=== PATIENT | male | born 1985 | race Caucasian/White ===

== ENCOUNTER 2020-06-25 20:59 | Emergency (ER) | payer BC ==
[2020-06-25 21:07] VITALS: BP 146/93; PULSE 85; TEMP 98.6; BMI 23.6
== END 2020-06-25 21:54 | disposition home or self-care (01) ==
LOC: JER 20:59
DX: K21.9 Gastro-esophageal reflux disease without esophagitis (principal); K58.9 Irritable bowel syndrome, unspecified
CPT/HCPCS: 99281-25

== ENCOUNTER 2021-02-23 19:54 | Emergency (ER) | payer BC ==
[2021-02-23 20:01] VITALS: BP 151/85; PULSE 88; TEMP 98; BMI 22.9
== END 2021-02-23 21:50 | disposition home or self-care (01) ==
LOC: JERFT 19:54
DX: K02.9 Dental caries, unspecified (principal); K21.9 Gastro-esophageal reflux disease without esophagitis
CPT/HCPCS: 82962; 99283-25

== ENCOUNTER 2023-08-03 22:03 | Emergency (ER) | payer BC ==
[2023-08-03 22:10] VITALS: BP 139/96; PULSE 90; RESP 18; TEMP 98.4; BMI 21.5
== END 2023-08-04 00:53 | disposition left against medical advice (07) ==
LOC: JER 22:03
DX: Z53.21 Procedure and treatment not carried out due to patient leaving prior to being seen by health care provider (principal)
CPT/HCPCS: 99281-25

== ENCOUNTER 2023-10-02 11:31 | Emergency (ER) | payer BC ==
[2023-10-02 11:44] VITALS: TEMP 98.4; BMI 21.5
[2023-10-02] MEDS ORDERED: ACETAMINOPHEN INJECTION 100 ML ONE (13:09)
[2023-10-02] MEDS ORDERED: MAG HYDROX/AL HYDROX/SIMETH 30 ML UNIT-DOSE CUP ONE (13:09)
[2023-10-02] MEDS ORDERED: FAMOTIDINE 20 MG/50 ML IVPB 20 MG/50 ML MG IVPB ONE (13:09)
[2023-10-02] MEDS ORDERED: LIDOCAINE 4% PATCH TP ONE (13:09)
[2023-10-02 13:17] LABS: BASO % 0.1 % (0-2.0); EOS % 0.3 % (0-4.5); HEMATOCRIT 42.9 % (35.4-49); HEMOGLOBIN 14.7 GM/dL (11.7-16.9); LYMPH % 18.6 % (8-40); MCH 30.3 pg (25.7-33.7); MCHC 34.3 g/dl (32.0-35.9); MEAN CELL VOLUME 88.3 fl (80-96); MEAN PLT VOLUME 7.1 fl (7.5-11.1); MONO % 5.3 % (3.8-10.2); NEUT % 75.7 % (42.8-82.8); PLATELET COUNT 271 10^3/uL (134-434); RBC 4.86 M/mm3 (4.00-5.60); RDW 13.6 % (11.9-15.9); WHITE BLOOD COUNT 9.6 K/mm3 (4.0-10.0)
[2023-10-02] MEDS: MAG HYDROX/AL HYDROX/SIMETH 30 ML UNIT-DOSE CUP PO ONE (13:26)
[2023-10-02] MEDS: LACTATED RINGERS SOLUTION 1000 ML INFUS.BAG IV ONE (13:26)
[2023-10-02] MEDS: LIDOCAINE 4% PATCH TP ONE (13:26)
[2023-10-02] MEDS: FAMOTIDINE 20 MG/50 ML IVPB 20 MG/50 ML MG IVPB ONE (13:26)
[2023-10-02] MEDS: ACETAMINOPHEN 1000 MG/100 ML BAG IVPB ONE (13:27)
[2023-10-02 13:33] LABS: CALCIUM 9.1 mg/dL (8.5-10.1); POTASSIUM 4.1 mmol/L (3.5-5.1)
[2023-10-02 13:34] LABS: BLOOD UREA NITROGEN 10.6 mg/dL (7-18); MAGNESIUM 2.2 mg/dL (1.8-2.4)
[2023-10-02 13:37] LABS: CREATININE 0.9 mg/dL (0.55-1.3)
[2023-10-02 13:39] LABS: BILIRUBIN,TOTAL 0.7 mg/dL (0.2-1); TOT PROT 7.9 g/dl (6.4-8.2)
[2023-10-02] MEDS ORDERED: ONDANSETRON 4 MG/2 ML VIAL ONE (14:22)
[2023-10-02] MEDS: ONDANSETRON 4 MG/2 ML VIAL IVPUSH ONE (14:41)
[2023-10-02 15:51] VITALS: BP 134/82; PULSE 85; RESP 18
[2023-10-02] MEDS ORDERED: LIDOCAINE PATCH REMOVAL MC SCH (22:00)
== END 2023-10-02 15:51 | disposition home or self-care (01) ==
LOC: JER 11:31
PROC: 3E033GC Introduction of Other Therapeutic Substance into Peripheral Vein, Percutaneous Approach (ICD-10-PCS; principal; 2023-10-02)
PROC: 3E033NZ Introduction of Analgesics, Hypnotics, Sedatives into Peripheral Vein, Percutaneous Approach (ICD-10-PCS; 2023-10-02)
PROC: 3E033GC Introduction of Other Therapeutic Substance into Peripheral Vein, Percutaneous Approach (ICD-10-PCS; 2023-10-02)
DX: R55 Syncope and collapse (principal); R42 Dizziness and giddiness; R11.0 Nausea; R20.2 Paresthesia of skin
CPT/HCPCS: 36415; 80053; 83735; 84439; 84443; 84484; 85025; 93005; 93010; 99284-25; J0131